=== PATIENT | male | born 1995 | race Caucasian/White ===

== ENCOUNTER 2021-09-09 21:53 | Inpatient (IN) | payer SELFPAY ==
[2021-09-09 22:12] VITALS: BP 118/70; PULSE 69; RESP 18; TEMP 36.5; O2SAT 97; BMI 22.4
[2021-09-09 22:34] LABS: Basophils % 0.3 %; Eosinophils # 0.2 10^3/uL (0.0-0.8); Eosinophils % 1.8 %; Hematocrit 49.2 % (42.0-52.0); Lymphocytes # 2.7 10^3/uL (0.8-4.8); Lymphocytes % 21.2 %; Mean Corpuscular HGB Conc 34.6 g/dL (30.0-36.0); Mean Corpuscular Hemoglobin 30.4 pg (28.0-34.0); Mean Platelet Volume 11.5 fL (7.4-10.4); Monocytes # 0.9 10^3/uL (0.2-0.9); Neutrophils # 8.67 10^3/uL (1.8-7.7); Neutrophils % 69.5 %; Nucleated Red Blood Cells % 0 %; Platelet Count 331 10^3/cmm (130-400); Red Blood Count 5.59 10^6/uL (4.1-5.3); Red Cell Distribution Width 12.9 % (12.1-15.1); White Blood Count 12.5 10^3/uL (4.0-10.0)
--- NOTE | 2021-09-09 22:37 | ED.C_ITS ---
HPI - Psych General: Chief Complaint: Psychiatric Symptoms Stated Complaint: 96 Time Seen by Provider: 09/09/21 22:14 Source: patient Mode of arrival: ambulatory Limitations: no limitations History of Present Illness: 26-year-old male who is here with their police under 96-hour hold. They state that they arrested him this morning as he was trying to steal a truck he states that he has been having thoughts of grandeur told him that God told him to still the truck and that he had been hallucinating since it arrested him in the intermediate he states that it worsened throughout the day so brought him up here for psychiatric evaluation patient in his room is quite paranoid he is very withdrawn with me though and will answer many my questions. Associated symptoms: Reports auditory hallucinations Review of Systems Const: Denies: fever(s), chills, body aches or change in appetite Eyes: Denies: blurry vision or eye discomfort ENMT: Denies: throat pain or dental pain Card: Denies: chest pain Resp: Denies: dyspnea GI: Denies: abdominal pain, nausea, vomiting or diarrhea : Denies: dysuria Musc: Denies: neck pain or back pain Skin/Breast: Denies: rash Neuro: Denies: headache(s) Psych: Reports: auditory hallucinations Tung/Lymph: Denies: easy bruising All/Imm: Denies: urticaria PFSH ED PFSH: Surgical History No pertinent past surgical history Social History (Updated 09/09/21 @ 22:39 by Zarina Gonsalez MD) Smoking and tobacco status: current some day smoker Physical Exam Const: COMMON NORMALS: no acute distress and patient oriented x3 HENMT: COMMON NORMALS: normocephalic and atraumatic HEAD & SCALP: normocephalic and atraumatic Eye: COMMON NORMALS: Equal, round and reactive pupils present and EOMs intact bilaterally PUPIL: Yes Equal, round and reactive pupils present Neck/C-Spine: COMMON NORMALS: full ROM and supple Chest: COMMONS NORMALS: normal inspection of the chest and normal palpation of entire chest wall Resp: COMMON NORMALS: normal respiratory effort, No retractions, No use of accessory muscles and clear to auscultation bilaterally AUSCULTATION: clear to auscultation bilaterally Cardio: COMMON NORMALS: regular rate, regular rhythm and No murmurs present (Cardio) RATE: regular rate RHYTHM: regular rhythm GI: COMMON NORMALS: Normal to inspection, nondistended, normoactive bowel sounds present, Soft to palpation, non-tender and no masses PALPATION: Yes Soft to palpation Extremity: COMMON NORMALS: normal to inspection and full ROM Neuro: COMMON NORMALS: patient oriented x3, moves all extremities and no focal motor deficits Psych: ATTITUDE: Yes paranoid and Yes Withdrawn affect present MOOD & AFFECT: Yes depressed mood THOUGHT CONTENT: Yes Hallucination(s) present Skin: COMMON NORMALS: no rashes or lesions noted and no wounds GENERAL SKIN EXAM: no rashes or lesions noted Course Vital Signs: Vital signs: Vital Signs Temperature 97.7 F 09/09/21 22:12 Pulse Rate 69 09/09/21 22:12 Respiratory Rate 18 09/09/21 22:12 Blood Pressure 118/70 09/09/21 22:12 Pulse Oximetry 97 09/09/21 22:12 [facility] - Psych Medical Decision Making Patient presents here with acute psychosis patient placed on a 96-hour hold spoke to psychiatrist and will admit to the psychiatric unit Lab Data : 09/09/21 22:26 09/09/21 22: Laboratory Results WBC 12.5 10^3/uL (4.0-10.0) H 09/09/21: RBC 5.59 10^6/uL (4.1-5.3) H 09/09/21: Hgb 17.0 g/dL (11.7-16.6) H 09/09/21: Hct 49.2 % (42.0-52.0) 09/09/21: MCV 88.0 fl (80-94) 09/09/21 22: MCH 30.4 pg (28.0-34.0) 09/09/21: MCHC 34.6 g/dL (30.0-36.0) 09/09/21: RDW 12.9 % (12.1-15.1) 09/09/21: Plt Count 331 10^3/cmm (130-400) 09/09/21 22: MPV 11.5 fL (7.4-10.4) H 09/09/21: Neut % (Auto) 69.5 % 09/09/21: Lymph % (Auto) 21.2 % 09/09/21: [place] % (Auto) 7.0 % 09/09/21: Eos % (Auto) 1.8 % 09/09/21: Baso % (Auto) 0.3 % 09/09/21: Neut # (Auto) 8.67 10^3/uL (1.8-7.7) H 09/09/21: Lymph # (Auto) 2.7 10^3/uL (0.8-4.8) 09/09/21: [place] # (Auto) 0.9 10^3/uL (0.2-0.9) 09/09/21: Eos # (Auto) 0.2 10^3/uL (0.0-0.8) 09/09/21: Baso # (Auto) 0.0 10^3/uL (0.0-0.1) 09/09/21: Nucleated RBC % (auto) 0 % 09/09/21: Nucleated RBCs # 0.0 /100WBC 09/09/21: Sodium 133 mmol/L (136-145) L 09/09/21: Potassium 3.8 mmol/L (3.5-5.1) 09/09/21: Chloride 97 mmol/L (98-107) L 09/09/21: Carbon Dioxide 24 mmol/L (22-29) 09/09/21: Anion Gap 15.8 (5-19) 09/09/21: BUN 15 mg/dL (6-20) 09/09/21: Creatinine 0.9 mg/dL (0.7-1.2) 09/09/21: GFR Calculation 102.0 mL/min (90-130) 09/09/21: Glucose 106 mg/dL (65-115) 09/09/21: Calculated Osmolality 277 mOsm/kg (285-295) L 09/09/21: Calcium 9.8 mg/dL (8.5-10.5) 09/09/21: Total Bilirubin 1.2 mg/dL (0.15-1.2) 09/09/21 22: AST 12 U/L (0-40) 09/09/21: ALT 12 U/L (0-41) 09/09/21 22: Alkaline Phosphatase 90 IU/L (40-130) 09/09/21 22: Total Protein 8.2 g/dL (6.6-8.7) 09/09/21: Albumin 5.1 g/dL (3.5-5.2) 09/09/21: Globulin 3.1 g/dL (1.3-4.6) 09/09/21: Salicylates < 0.3 mg/dL (3-10) L 09/09/21: Acetaminophen < 5.0 ug/mL (10-30) L 09/09/21: Ethyl Alcohol < 10 mg/dL (0-10) 09/09/21:26 Discharge Plan Discharge Patient Disposition: Admitted As Inpatient Clinical Impression: Acute psychosis Coding Level of Care Code ED Training And Development Coordinator for Bobbi Fwd Exam Comprehensive
[2021-09-09 22:49] LABS: Alanine Aminotransferase 12 U/L (0-41); Albumin Level 5.1 g/dL (3.5-5.2); Alkaline Phosphatase 90 IU/L (40-130); Anion Gap 15.8 (5-19); Aspartate Amino Transferase 12 U/L (0-40); Blood Urea Nitrogen 15 mg/dL (6-20); Calcium 9.8 mg/dL (8.5-10.5); Carbon Dioxide 24 mmol/L (22-29); Chloride 97 mmol/L (98-107); Globulin 3.1 g/dL (1.3-4.6); Glucose 106 mg/dL (65-115); Osmolality Calculated 277 mOsm/kg (285-295); Potassium 3.8 mmol/L (3.5-5.1); Sodium 133 mmol/L (136-145); Total Bilirubin 1.2 mg/dL (0.15-1.2); Total Protein 8.2 g/dL (6.6-8.7)
[2021-09-09 22:51] LABS: Acetaminophen < 5.0 ug/mL (10-30); Alcohol Level < 10 mg/dL (0-10); Salicylate < 0.3 mg/dL (3-10)
[2021-09-09 23:22] LABS: Amphetamines Screen Urine Positive (Negative); Barbiturates Screen Urine Negative (Negative); Benzodiazepines Screen Urine Negative (Negative); Cocaine Screen Urine Negative (Negative); Opiate Screen Urine Negative (Negative); PCP Screen Urine Negative (Negative); THC Screen Urine Positive (Negative)
[2021-09-10 00:50] VITALS: BP 104/79; PULSE 88; RESP 16; TEMP 36.8; O2SAT 99
--- NOTE | 2021-09-10 01:35 | PC.ADMIT ---
Admission Note:26-year-old male who is here with their police under 96-hour hold. They state that they arrested him this morning as he was trying to steal a truck he states that he has been having thoughts of grandeur told him that God told him to still the truck and that he had been hallucinating since [facility] he states that it worsened throughout the day so brought him up here for psychiatric evaluation patient in his room is quite paranoid he is very withdrawn with me though and will answer many my questions. Associated symptoms: Reports auditory hallucinationsThe patient is uncooperative and is guarded with his answers. Per the affidavits he tried to steal a car saying that god told him to do it. He was in penitentiary all day and began hitting his head in the cell. Patient was brought to the ED for psychiatric evaluation. He states that he does not drink alcohol because his dad drank himself to . He states he does do weed and meth which were both positive on his drug screen. The patient states he is very tired and just wants to sleep. The patient,Victor Hugo Kenny,26 y/o, was given written information regarding hospital policies, unit procedures and contact persons. Patient's smoking status: current some day smoker. Vital Signs - 8 hr 09/09/21 22:12 09/10/21 00:50 Temperature 97.7 F 98.2 F Pulse Rate 69 88 Respiratory Rate 18 16 Blood Pressure 118/70 104/79 Pulse Oximetry 97 99
[2021-09-10 06:00] VITALS: BP 99/68; PULSE 73; RESP 16; TEMP 36.9; O2SAT 98
--- NOTE | 2021-09-10 13:12 | P.NPUHP_ITS ---
Providers/Chief Complaint Admitting Physician: Gautam Hicks MD Chief Complaint: 96 HPI NPU History of Present Illness Victor Hugo Kenny is a 26 year old male admitted to our emergency department with the following report: 26-year-old male who is here with their police under 96-hour hold.? They state that they arrested him this morning as he was trying to steal a truck he states that he has been having thoughts of grandeur told him that God told him to still the truck and that he had been hallucinating since it arrested [facility] he states that it worsened throughout the day so brought him up here for psychiatric evaluation patient in his room is quite paranoid he is very withdrawn with me though and will answer many my questions. Associated symptoms: Reports auditory hallucinations He was admitted to the neuropsychiatry unit for definitive treatment of these issues. He says that he was released from retirement May 02 of last year. He initially was living with his mother but recently has been living in his car. He says he has not been eating well. He attributes much of his problems to not eating well. 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 He says that if he does not go to school tomorrow he will be kicked out of school. The money he spent on college will be wasted. He at 1 point said his grandfather had a loan for $55,000 and would lose his house if the patient stayed in the hospital past tomorrow. He then said he owes $22,000. He says that he has a payment that is due tomorrow. He said he had $3000 in his wallet but cannot use it because he is here in the hospital. He admitted to using methamphetamine. He says that he hates it and it is evil. However, because he had not been eating he needed the energy. He said that he did not try to steal a truck. He said that he went to the store and when he came out he got into the wrong truck. However I told him that I heard that God had told him to steal the truck. He said that God talks to people in a variety of different ways. He was frustrated with me and did not want to talk anymore. I told him that I would talk with him more later when his mind was more clear. He said he was sure that it was not the methamphetamine that was causing any difficulties but just his difficulty with having no appet ite and not being able to eat. He said that he was thinking more straight than anyone else on the planet. However then he said that he was worried about other people and unable to think about his own issues. He pointed out into the hallway and said twice something like I am not going out there those people are crazy Meds NPU Home Medications Medication Instructions Recorded Confirmed Last Taken Type No Known Home Medications 09/10/21 09/10/21 Unknown History PFSH NPU PFSH: Surgical History No pertinent past surgical history Social History (Updated 09/09/21 @ 22:39 by Zarina Gonsalez MD) Smoking and tobacco status: current some day smoker Mental Status Exam MSE Comments: This is a 26-year-old appropriate weight male who appears approximately his stated age and is in no acute distress. He was found in bed at 1 PM but responded immediately to his name. He is dressed in hospital scrubs and has several days' growth of bynum. He was not very cooperative with the evaluation as described. psychomotor activity mildly increased. Speech is at a regular rate and rhythm, normal volume, good articulation, not pressured. Alert, oriented X3 Attention and concentration somewhat diminished. Memory is intact Mood is frustrated. Affect is irritable. Thought process is logical and goal-directed. Thought content: Denies auditory and visual hallucinations. He is obviously delusional as described above. There is no paranoia evident. No current suicidal ideation. He denies homicidal ideation. Fund of knowledge is probably average. Insight and judgment appear to be poor. Impulse control is poor. Vitals/I&O/Wt Last Vital Signs Temp 98.4 F 09/10/21 06:00 Pulse 73 09/10/21 06:00 Resp 16 09/10/21 06:00 BP 99/68 09/10/21 06:00 Pulse Ox 98 09/10/21 06:00 Weight last 48 hrs Weight 74.843 kg Data NPU : 09/09/21 22:26 09/09/21 22:26 A&P Assessment and plan (1) Acute psychosis: Status: Acute (2) Methamphetamine abuse: Status: Acute Plan This is a 26-year-old male who comes in for acute psychosis induced by methamphetamine. Plan: 1. Will observe on no medications except for standard as needed medications. 2. Continue every 15 minute checks for safety. 3. Encourage individual, group and milieu therapies. 4. Encourage sober living treatment after discharge at the highest level of care to which he is willing to commit. 5. We will monitor for safety for himself in the community prior to discharge. Involuntary Hold Information 96 Hour Hold: 96 Hour Involuntary Admission: Yes 96 Hour Hold Ending Date: 09/15/21 96 Hour Hold Ending Time: 23:00 Attestations NPU Medical Necessity Statement*: Inpatient hospitalization is medically necessary and the clinically appropriate intervention at this time. We will initiate medications and make changes as indicated. He will be in the hospital for over 2 midnights. Likely length of stay 4-6 days Coding Level of Care Code Acute Big Data Software Engineer for Bobbi Looney Diagnoses Acute psychosis F23 Methamphetamine abuse F15.10
[2021-09-10] MEDS: OLANZapine 5 mg ODT PO (13:35)
[2021-09-10 14:00] VITALS: BP 128/92; PULSE 68; RESP 16; TEMP 36.6; O2SAT 97
[2021-09-10 20:25] VITALS: RESP 18
[2021-09-10] MEDS: OLANZapine 5 mg TABLET PO (21:32)
[2021-09-11 06:00] VITALS: BP 91/57; PULSE 72; RESP 16; TEMP 36.7; O2SAT 98
[2021-09-11 14:00] VITALS: BP 116/80; PULSE 108; RESP 20; TEMP 36.6; O2SAT 99
--- NOTE | 2021-09-11 15:41 | W.PM.NPUPNS ---
Subjective NPU Subjective: He feels like he is doing much better. He is happy that he came here. It was an eye opening and rewarding experience. He said that he feels like God put him here for a reason. I asked him about the truck that he was accused of trying to steal. He got rattled with that. He did not want to discuss it further because it gets him confused. He is hoping that he will go back to [employer] and be able to complete the welding course. He has other plans if that does not work out. Mental Status Exam MSE Comments: This is a 26-year-old appropriate weight male who appears approximately his stated age and is in no acute distress. He was found in bed at 3 PM but responded immediately to his name. He is dressed in hospital scrubs and has several days' growth of bynum. He was pleasant and cooperative with the evaluation. psychomotor activity mildly increased. Speech is at a regular rate and rhythm, normal volume, good articulation, not pressured. Alert, oriented X3 Attention and concentration appear to be normal. Memory is intact Mood is good. Affect is euthymic. Thought process is logical and goal-directed. Thought content: Denies auditory and visual hallucinations. He does not appear to be delusional or paranoid. No current suicidal ideation. He denies homicidal ideation. Fund of knowledge is probably average. Insight and judgment appear to be significantly improved. Impulse control is significantly improved. Cognition: Patient Appearance: Appropriate Level of Consciousness: Awake, Alert, Appropriate and Follows Commands Patient Cognition Impaired: No Ability to Follow Directions: Good Patient Orientation (long list): Person, Place, Name, Age and Birthday Comprehension Ability: No Impairment Hallucination Type: None Delusion Description: Not Present Thought Process: Disorganized Affect: Affect Description: Appropriate Depressive Symptoms: Sleeping More Than Usual Behavior: Patient Behavior: Appropriate Speech Pattern: Appropriate Vitals/I&O/Wt Last Vital Signs Temp 98 F 09/11/21 14:00 Pulse 108 H 09/11/21 14:00 Resp 20 H 09/11/21 14:00 BP 116/80 09/11/21 14:00 Pulse Ox 99 09/11/21 14:00 Weight last 48 hrs Weight 74.843 kg Data NPU : 09/09/21 22:26 09/09/21 22:26 A&P Assessment and plan (1) Acute psychosis: Status: Acute (2) Methamphetamine abuse: Status: Acute Plan This is a 26-year-old male who comes in for acute psychosis induced by methamphetamine. Plan: 1. Will observe on no medications except for standard as needed medications. 2. Continue every 15 minute checks for safety. 3. Encourage individual, group and milieu therapies. 4. Encourage sober living treatment after discharge at the highest level of care to which he is willing to commit. 5. We will monitor for safety for himself in the community prior to discharge. Involuntary Hold Information 96 Hour Hold: 96 Hour Involuntary Admission: Yes 96 Hour Hold Ending Date: 09/15/21 96 Hour Hold Ending Time: 23:00 Attestations NPU Medical Necessity Statement*: Inpatient hospitalization is medically necessary and the clinically appropriate intervention at this time. We will initiate medications and make changes as indicated. Coding Level of Care Code Acute Cottonseed Meat Presser for Bobbi Looney Diagnoses Acute psychosis F23 Methamphetamine abuse F15.10
[2021-09-11 21:15] VITALS: RESP 16
[2021-09-11] MEDS: OLANZapine 5 mg TABLET PO (21:16)
[2021-09-12 06:00] VITALS: BP 122/72; PULSE 62; RESP 19; TEMP 36.8; O2SAT 98
--- NOTE | 2021-09-12 07:03 | W.PM.NPUDCS ---
Diagnoses at Discharge Discharge Diagnosis (1) Acute psychosis: Status: Acute (2) Methamphetamine abuse: Status: Acute Reason for Visit Reason for Visit: 96 Brief History: History of Present Illness Victor Hugo Kenny is a 26 year old male admitted to our emergency department with the following report: 26-year-old male who is here with their police under 96-hour hold.? They state that they arrested him this morning as he was trying to steal a truck he states that he has been having thoughts of grandeur told him that God told him to still the truck and that he had been hallucinating since it arrested him in the residential he states that it worsened throughout the day so brought him up here for psychiatric evaluation patient in his room is quite paranoid he is very withdrawn with me though and will answer many my questions. Associated symptoms: Reports auditory hallucinations He was admitted to the neuropsychiatry unit for definitive treatment of these issues.? He says that he was released from halfway May 02 of last year.? He initially was living with his mother but recently has been living in his car.? He says he has not been eating well.? He attributes much of his problems to not eating well.? 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 The money he spent on college will be wasted.? He at 1 point said his grandfather had a loan for $55,000 and would lose his house if the patient stayed in the hospital past tomorrow.? He then said he owes $22,000.? He says that he has a payment that is due tomorrow.? He said he had $3000 in his wallet but cannot use it because he is here in the hospital.? He admitted to using methamphetamine.? He says that he hates it and it is evil.? However, because he had not been eating he needed the energy.? He said that he did not try to steal a truck.? He said that he went to the store and when he came out he got into the wrong truck.? However I told him that I heard that God had told him to steal the truck.? He said that God talks to people in a variety of different ways.? He was frustrated with me and did not want to talk anymore.? I told him that I would talk with him more later when his mind was more clear.? He said he was sure that it was not the methamphetamine that was causing any difficulties but just his difficulty with having no appetite and not being able to eat.? He said that he was thinking more straight than anyone else on the planet.? However then he said that he was worried about other people and unable to think about his own issues.? He pointed out into the hallway and said twice something like I am not going out there those people are crazy Hospital Course Hospital Course He slowly acclimated to the individual, group and milieu therapies provided. He was started on Zyprexa 5 mg at bedtime to help him sleep and to boost his appetite. He tolerated these doses and showed steady improvement during his stay. He was able to contract for safety outside hospital prior to discharge. During the hospitalization, patient had routine laboratory studies which were within normal limits except for few outliers. Additionally there was a general medical evaluation which was also within normal limits and revealed no new acute processes. Discharge Summary: At the time of discharge, lethality was denied and psychosis was resolving. Mood and anxiety were well managed. Patient endorsed a plan to follow-up with the aftercare recommendations of the treatment team. Patient was evaluated and deemed to be absent credible lethality, and had achieved the maximum benefit from an inpatient hospitalization, so was discharged. Involuntary Hold Information 96 Hour Hold: 96 Hour Involuntary Admission: Yes 96 Hour Hold Ending Date: 09/15/21 96 Hour Hold Ending Time: 23:00 Mental Status Exam MSE Comments: This is a 26-year-old appropriate weight male who appears approximately his stated age and is in no acute distress. He was found in bed at 7 AM but responded immediately to his name. He is dressed in hospital scrubs and has several days' growth of ybnum. He was pleasant and cooperative with the evaluation. psychomotor activity normal. Speech is at a regular rate and rhythm, normal volume, good articulation, not pressured. Alert, oriented X3 Attention and concentration appear to be normal. Memory is intact Mood is good. Affect is euthymic. Thought process is logical and goal-directed. Thought content: Denies auditory and visual hallucinations. He does not appear to be delusional or paranoid. No current suicidal ideation. He denies homicidal ideation. Fund of knowledge is probably average. Insight and judgment appear to be significantly improved. Impulse control is significantly improved. Cognition: Patient Appearance: Appropriate Level of Consciousness: Awake, Alert, Appropriate and Follows Commands Patient Cognition Impaired: No Ability to Follow Directions: Good Patient Orientation (long list): Person, Place, Name, Age and Birthday Comprehension Ability: No Impairment Hallucination Type: None Delusion Description: Not Present Thought Process: Disorganized Affect: Affect Description: Calm Depressive Symptoms: Sleeping More Than Usual Behavior: Patient Behavior: Appropriate Speech Pattern: Appropriate and Clear Discharge Data Studies Completed and Pending: Laboratory Results WBC 12.5 10^3/uL (4.0 -10.0) H 09/09/21: RBC 5.59 10^6/uL (4.1 -5.3) H 09/09/21: Hgb 17.0 g/dL (11.7-1 6.6) H 09/09/21: Hct 49.2 % (42.0-52.0 ) 09/09/21: MCV 88.0 fl (80-94) 09/09/21: MCH 30.4 pg (28.0-34. 0) 09/09/21: MCHC 34.6 g/dL (30.0-3 6.0) 09/09/21: RDW 12.9 % (12.1-15.1 ) 09/09/21: Plt Count 331 10^3/cmm (130 -400) 09/09/21 22: MPV 11.5 fL (7.4-10.4 ) H 09/09/21: Neut % (Auto) 69.5 % 09/09/21: Lymph % (Auto) 21.2 % 09/09/21: [place] % (Auto) 7.0 % 09/09/21: Eos % (Auto) 1.8 % 09/09/21: Baso % (Auto) 0.3 % 09/09/21: Neut # (Auto) 8.67 10^3/uL (1.8 -7.7) H 09/09/21: Lymph # (Auto) 2.7 10^3/uL (0.8- 4.8) 09/09/21: [place] # (Auto) 0.9 10^3/uL (0.2- 0.9) 09/09/21 22: Eos # (Auto) 0.2 10^3/uL (0.0- 0.8) 09/09/21: Baso # (Auto) 0.0 10^3/uL (0.0- 0.1) 09/09/21: Nucleated RBC % (a uto) 0 % 09/09/21 Nucleated RBCs # 0.0 /100WBC 09/09/21: Sodium 133 mmol/L (136-1 45) L 09/09/21: Potassium 3.8 mmol/L (3.5-5 .1) 09/09/21: Chloride 97 mmol/L (98-107 ) L 09/09/21: Carbon Dioxide 24 mmol/L (22-29) 09/09/21: Anion Gap 15.8 (5-19) 09/09/21: BUN 15 mg/dL (6-20) 09/09/21: Creatinine 0.9 mg/dL (0.7-1. 2) 09/09/21: GFR Calculation 102.0 mL/min (90- 130) 09/09/21: Glucose 106 mg/dL (65-115 ) 09/09/21: Calculated Osmolal ity 277 mOsm/kg (285- 295) L 09/09/21: Calcium 9.8 mg/dL (8.5-10 .5) 09/09/21: Total Bilirubin 1.2 mg/dL (0.15-1 .2) 09/09/21: AST 12 U/L (0-40) 09/09/21: ALT 12 U/L (0-41) 09/09/21: Alkaline Phosphata se 90 IU/L (40-130) 09/09/21: Total Protein 8.2 g/dL (6.6-8.7 ) 09/09/21: Albumin 5.1 g/dL (3.5-5.2 ) 09/09/21: Globulin 3.1 g/dL (1.3-4.6 ) 09/09/21 22:26 Salicylates < 0.3 mg/dL (3-10 ) L 09/09/21 22:26 Urine Opiates Scre en Negative ng/mL (N egative) 09/09/21 23:05 Acetaminophen < 5.0 ug/mL (10-3 0) L 09/09/21 22:26 Ur Barbiturates Sc reen Negative ng/mL (N egative) 09/09/21 23:05 Ur Phencyclidine S crn Negative ng/mL (N egative) 09/09/21 23:05 Ur Amphetamines Sc reen Positive ng/mL (N egative) H 09/09/21 23:05 U Benzodiazepines Scrn Negative ng/mL (N egative) 09/09/21 23:05 Urine Cocaine Scre en Negative ng/mL (N egative) 09/09/21 23:05 U Marijuana (THC) Screen Positive ng/mL (N egative) H 09/09/21 23:05 Ethyl Alcohol < 10 mg/dL (0-10) 09/09/21 22:26 Vitals: Last Vital Signs Temp 98.2 F 09/12/21 06:00 Pulse 62 09/12/21 06:00 Resp 19 H 09/12/21 06:00 BP 122/72 09/12/21 06:00 Pulse Ox 98 09/12/21 06:00 Discharge Plan Discharge Patient Disposition: Home Condition: Stable Prescriptions: New olanzapine 5 mg Tablet 5 mg PO BEDTIME 30 Days Qty: 30 1RF Discharge Orders: Discharge Order (Routine); Ordered 09/12/21 Ordered By: Gautam Hicks Discharge Diet: Regular Discharge Activity: Resume usual activity Patient Instructions: Opioid Safety Discharge Attestations NPU Time Spent in Discharge Care*: less than 30 min Specific Discharge Activities: Specific discharge activities: educating patient, discussing with case management social worker/social workers/dc planners, documenting/other paperwork and evaluating patient/reviewing data Coding Level of Care Code Acute Chg FW DC note Diagnoses Acute psychosis F23 Methamphetamine abuse F15.10
[2021-09-12 12:37] VITALS: BP 122/72; PULSE 62; RESP 19; TEMP 36.8; O2SAT 98
== END 2021-09-12 16:23 | disposition home or self-care (01) | DRG 885 ==
LOC: ER 23:06 → NP 09-10 00:13
PROVIDERS: Admitting Provider Psychiatry & Neurology Psychiatry; Emergency Provider Emergency Medicine; Visit Provider Psychiatry & Neurology Psychiatry
DX: F23 Brief psychotic disorder (principal); F17.200 Nicotine dependence, unspecified, uncomplicated; Z59.02 Unsheltered homelessness; F15.10 Other stimulant abuse, uncomplicated
CPT/HCPCS: 80053; 80306; 80307; 85025; 97150; 97165; 99285